=== PATIENT | male | born 1985 | race Hispanic/Latino ===

== ENCOUNTER → 2023-03-19 | Outpatient (CLI) | payer OTHER ==
[~2023-03-19] MED LIST: IBUP600T42 PO; LORT5TAB PO; TYLE325T5 PO; ZYRT10CA PO
== END ==
LOC: M RAD 15:05
PROVIDERS: ATTEND Physician Assistant
DX: J32.8 Other chronic sinusitis (principal)

== ENCOUNTER 2023-07-16 08:16 | Day surgery (SDC) | payer OTHER ==
[~2023-07-16] VITALS: Ht 167.6 cm; Wt 100.2 kg
[~2023-07-16 08:16] MED LIST changes: +LORA-930 PO
[2023-07-16] MEDS ORDERED: LR 1,000 ML IV SCH ×3 (08:30→14:30)
[2023-07-16] MEDS ORDERED: MIDAZOLAM INJ 2MG/2ML VIAL As Ordered ONE (10:58)
[2023-07-16] MEDS ORDERED: fentaNYL 100 MCG/2 ML INJECTION As Ordered ONE ×2 (10:58→13:39)
[2023-07-16] MEDS ORDERED: propofoL 200 MG/20 ML VIAL As Ordered ONE ×2 (10:59→13:27)
[2023-07-16] MEDS ORDERED: LIDOCAINE 2% 100MG/5ML SDV (FOR ANES.) As Ordered ONE ×2 (11:00→14:21)
[2023-07-16] MEDS ORDERED: ROCURONIUM BROMIDE 50MG/5ML VIAL As Ordered ONE ×2 (11:00→13:19)
[2023-07-16] MEDS ORDERED: ONDANSETRON 4MG 2ML VIAL As Ordered ONE (11:03)
[2023-07-16] MEDS ORDERED: dexmedeTOMIDine (4MCG/ML)200MCG/50ML BTL (PRECEDEX) As Ordered ONE (11:07)
[2023-07-16] MEDS ORDERED: LIDOCAINE W/EPINEPHRINE 1% 20ML VIAL As Ordered ONE (12:10)
[2023-07-16] MEDS ORDERED: COCAINE 4% 4ML NASAL SOLUTION BTL As Ordered ONE (12:10)
[2023-07-16] MEDS ORDERED: OXYMETAZOLINE 0.05% NASAL SPRAY (AFRIN) As Ordered ONE (12:10)
[2023-07-16] MEDS ORDERED: ACETAMINOPHEN 1000MG 100ML IV BAG As Ordered ONE (12:43)
[2023-07-16] MEDS ORDERED: ESMOLOL INJ 100MG/10ML VIAL As Ordered ONE (13:19)
[2023-07-16] MEDS ORDERED: PHENYLephrine 500MCG 5ML (100MCG/ML) SYRINGE As Ordered ONE (13:46)
[2023-07-16] MEDS ORDERED: fentaNYL 100 MCG/2 ML INJECTION IV PRN (14:15)
[2023-07-16] MEDS ORDERED: ONDANSETRON 4MG 2ML VIAL IV PRN ×2 (14:15→14:30)
[2023-07-16] MEDS ORDERED: HYDROMORPHONE HCL 0.5 MG/ 0.5 ML SYRINGE IV PRN (14:15)
[2023-07-16] MEDS ORDERED: oxyCODONE 5MG TAB PO PRN (14:15)
[2023-07-16] MEDS ORDERED: ANEXSIA, NORCO 7.5MG/325MG TABLET(HYDROCODONE/APAP) PO PRN (14:30)
[2023-07-16 15:28] VITALS: BP 108/72; TEMP 97.3; O2SAT 95
== END 2023-07-16 15:30 | disposition home or self-care (01) ==
LOC: M SDC 08:16
PROVIDERS: ATTEND Otolaryngology
DX: J30.9 Allergic rhinitis, unspecified (principal); J32.9 Chronic sinusitis, unspecified; J33.0 Polyp of nasal cavity
CPT/HCPCS: 31255; 31256; 31296; 61782; 88305; A6024; C9143; J0131; J1100; J1805; J2250; J2405; J3010

== ENCOUNTER 2024-04-19 09:58 | Emergency (ER) | payer OTHER ==
[~2024-04-19] VITALS: Ht 167.6 cm; Wt 106.2 kg
[2024-04-19] MEDS ORDERED: IBUP-1729 (10:06)
[2024-04-19] MEDS: diazePAM 5MG TABLET PO ONE (12:29)
[2024-04-19] MEDS: KETOROLAC 60MG 2ML VIAL IM ONE (12:30)
[2024-04-19] MEDS: LIDOCAINE 5% (LIDODERM) PATCH TD ONE (12:31)
[2024-04-19] MEDS ORDERED: ASPE4PAD TOP (13:47)
[2024-04-19] MEDS ORDERED: METH-1165 PO (13:47)
[2024-04-19] MEDS ORDERED: IBUP-1022 PO (13:47)
[2024-04-19 14:13] VITALS: BP 138/92; TEMP 98; O2SAT 98
== END 2024-04-19 14:16 | disposition home or self-care (01) ==
LOC: M ED 09:58
DX: M54.50 Low back pain, unspecified (principal); M54.6 Pain in thoracic spine; M25.552 Pain in left hip; M25.562 Pain in left knee; W01.0XXA Fall on same level from slipping, tripping and stumbling without subsequent striking against object, initial encounter; Y92.512 Supermarket, store or market as the place of occurrence of the external cause; Y93.89 Activity, other specified; Y99.9 Unspecified external cause status
CPT/HCPCS: 72110; 73502; 73564; 96372; 99283; J1885

== ENCOUNTER → 2024-10-24 | Outpatient (CLI) | payer OTHER ==
[~2024-10-24] MED LIST changes: +ASPE4PAD TOP; +IBUP-1022 PO; +IBUP-1729; +ISOVUE-300 61% 100ML VIAL As Ordered ONE; +LIDOCAINE 1% MDV 20ML VIAL As Ordered ONE; +METH-1165 PO; +PROHANCE 279.3MG/ML 5ML VIAL As Ordered ONE
== END ==
LOC: M RAD 06:52
PROVIDERS: ATTEND Physician Assistant
DX: M25.552 Pain in left hip (principal); M54.9 Dorsalgia, unspecified; M24.852 Other specific joint derangements of left hip, not elsewhere classified
CPT/HCPCS: 27093; 73723; 77002; A9576; Q9967

== ENCOUNTER → 2024-12-15 | Outpatient (CLI) | payer OTHER ==
[~2024-12-15] MED LIST changes: -PROHANCE 279.3MG/ML 5ML VIAL As Ordered ONE; +TRIAMCINOLONE ACETONIDE SUSP 40MG/ML 1ML VIAL As Ordered ONE
== END ==
LOC: M RAD 11:34
PROVIDERS: ATTEND Physician Assistant Surgical
DX: S73.122A Ischiocapsular ligament sprain of left hip, initial encounter (principal); X58.XXXA Exposure to other specified factors, initial encounter; Y92.9 Unspecified place or not applicable
CPT/HCPCS: 20610; 77002; J3301; Q9967